=== PATIENT | female | born 1955 | race Caucasian/White ===

== ENCOUNTER 2017-06-15 13:09 | Day surgery (SDC) | payer OTHER ==
[~2017-06-15] VITALS: Ht 172.7 cm; Wt 116.1 kg
[~2017-06-15 13:09] MED LIST: BYSTOLIC5 MG PO; VITAMIN D5000 UNIT PO
--- NOTE | 2017-06-15 16:33 | NUR ---
06/15/17 1633 Tari Jeong 1627 - PT ARRIVED TO PACU. AWAKE AND RESPONDING APPROPRIATLY TO QUESTIONS. PT DENIES PAIN AND NAUSEA.
--- NOTE | 2017-06-27 13:40 | OR ---
[facility] [address] [place], [place] [address] Signed DATE OF PROCEDURE: 06/15/17 PREOPERATIVE DIAGNOSIS: History of hyperplastic polyp, 2011. POSTOPERATIVE DIAGNOSES Polyp at 40 cm (excised). Scattered diverticula. PROCEDURE Total colonoscopy to cecum with cold morcellation polypectomy x1. SURGEON: Ariadna Andrea MD. ANESTHESIA: Intravenous sedation, Fentanyl 200 mcg, Versed 8 mg. INDICATION This 62-year-old white woman is a patient of Dr. Palma and known to me from the past from colonoscopy performed in 2011, at which time, she was noted to have at least 1 hyperplastic polyp. She has no family history of colon cancer and no symptoms related to the colon currently. She is admitted for surveillance colonoscopy. Understand the risks of bleeding, infection, perforation. FINDINGS The prep was excellent. Complete colonoscopy was undertaken to the cecum. There was a polyp that was flat and slightly inflammatory noted at 40 cm. This was excised with cold morcellation technique completely. The remaining colon and rectum were normal. DESCRIPTION OF PROCEDURE The patient was brought to the endoscopy suite and placed in lateral decubitus position. Given intravenous sedation to the point of slurred speech and nystagmus. Digital rectal examination was normal. An Olympus video colonoscope was passed in the rectum and manipulated throughout the colon ultimately intubating the cecum itself. Additional sedation was given as needed for pain control. The cecum was ascertained by visualization of the ileocecal valve and appendiceal orifice. The scope was withdrawn from that point. Examination throughout undertaken showing no sign of abnormality other than a few scattered diverticula and ultimately a sessile type polyp at 40 cm. This was excised with cold morcellation technique completely. Further withdrawal of scope showed no other abnormality. Retroflexed view in the rectum was normal. Scope was removed and the patient was taken to recovery room in good condition. Electronically Signed By: ARIADNA ANDREA MD 06/27/17 6367 PATIENT NAME: COLTEN XAVIER OPERATIVE REPORT DATE OF : 59 PHYSICIAN: ARIADNA ANDREA MD REPORT #: [id number] REPORT IS CONFIDENTIAL AND NOT TO BE RELEASED WITHOUT AUTHORIZATION [facility] [address], [place] [address] Signed CONCLUDING DIAGNOSES Polyp at 40 cm completely excised. Minimal diverticula. PLAN Recommend repeat colonoscopy in 3 years, sooner if clinically indicated. She will return to the ongoing care of Dr. Palma in the meantime. We will review her pathology report as well. MD CARLO Ruelas/Modl /[id number] cc: Aramis Palma MD Electronically Signed By: ARIADNA ANDREA MD 06/27/17 1340 PATIENT NAME: COLTEN XAVIER OPERATIVE REPORT DATE OF : 59 PHYSICIAN: ARIADNA ANDREA MD REPORT #: [id number] REPORT IS CONFIDENTIAL AND NOT TO BE RELEASED WITHOUT AUTHORIZATION
== END 2017-06-15 17:00 | disposition home or self-care (01) ==
LOC: DS 13:09 → OPS 13:09 → DS 15:00 → OPS 15:00
PROVIDERS: Surgery
PROC: 0DBE8ZX Excision of Large Intestine, Via Natural or Artificial Opening Endoscopic, Diagnostic (ICD-10-PCS; principal; 2017-06-15 15:00)
DX: Z12.11 Encounter for screening for malignant neoplasm of colon (principal); D12.6 Benign neoplasm of colon, unspecified; K57.30 Diverticulosis of large intestine without perforation or abscess without bleeding; K59.00 Constipation, unspecified; Z88.0 Allergy status to penicillin; Z79.52 Long term (current) use of systemic steroids; Z79.899 Other long term (current) drug therapy; Z90.89 Acquired absence of other organs; Z98.890 Other specified postprocedural states; Z86.010 Personal history of colon polyps
CPT/HCPCS: 99152; 99153; J2250; J3010; J7120

== ENCOUNTER 2021-04-08 06:25 | Day surgery (SDC) | payer OTHER ==
[~2021-04-08] VITALS: Ht 172.7 cm; Wt 117.0 kg
[~2021-04-08 06:25] MED LIST changes: +NITROFURANTOIN100 M1 PO
--- NOTE | 2021-04-08 08:19 | NUR ---
04/08/21 0819 Story,Maribeth 1501 PT. ARRIVED DROWSY BUT REPSONDS TO QUESTIONS. PASSING GAS, DENIES PAIN.
--- NOTE | 2021-04-08 18:29 | OR ---
[facility] [address] [place], [place] [address] Signed DATE OF OPERATION: 04/08/2021 SURGEON: Ariadna Andrea MD PREOPERATIVE DIAGNOSIS: History of tubular adenoma at 40 cm, 2017. POSTOPERATIVE DIAGNOSES: 1. Rectosigmoid polyp (excised). 2. Mild proctitis. 3. Scattered diverticula. PROCEDURES: 1. Total colonoscopy with visualization of cecum (without complete intubation). 2. Hot snare polypectomy x1. 3. Cold morcellation biopsy of rectum. ANESTHESIA: Intravenous sedation, fentanyl 200 mcg and Versed 8 mg. INDICATION: This 65-year-old white woman is a patient of Dr. Antonio Palma and has undergone colonoscopy at least twice by me in the last in 2016 where she was found to have a tubular adenoma at approximately 40 cm from the anal verge. She is admitted at this time to undergo surveillance colonoscopy and understand the risks of bleeding, infection, and perforation. FINDINGS: Colonoscopy was challenging for reasons that are not entirely clear. She did require abdominal wall stabilization and the cecum was not fully intubated, though was visualized and clearly the ileocecal valve was visualized. There were scattered diverticula of the left colon and sigmoid. She had a somewhat pedunculated polyp at rectosigmoid, which was excised with hot snare polypectomy technique and mild proctitis for which biopsy was undertaken. There were no other findings of concern. PROCEDURE NOTE: The patient was brought to the endoscopy suite and placed in lateral decubitus position, given intravenous sedation to the point of slurred speech and nystagmus. Digital rectal examination was normal. Electronically Signed By: ARIADNA ANDREA MD 04/08/21 1829 PATIENT NAME: SHIRIN XAVIER OPERATIVE REPORT DATE OF : 59 REPORT #: [id number] PHYSICIAN: ARIADNA ANDREA MD PCP: BRY PALMA MD REPORT IS CONFIDENTIAL AND NOT TO BE RELEASED WITHOUT AUTHORIZATION [facility] [address] [place], [place] [address] Signed An Olympus video colonoscope was passed in the rectum and manipulated into the sigmoid. She had a fair amount of discomfort for which additional sedation was required. Passage of the scope was still somewhat challenging through the sigmoid and left colon ultimately passing the sigmoid noting diverticula scattered about. Further with advance of the scope was undertaken, passage beyond the hepatic flexure required abdominal wall stabilization and additional sedation medication. Ultimately, the scope was passed to visualize the ileocecal valve, but actual intubation of the cecum was not possible despite various efforts to do so. Abdominal wall palpation confirmed that the scope was at the right lower quadrant. The biopsy forceps was used to elevate the mucosa behind the ileocecal valve and there was no sign of abnormality there. The scope was then withdrawn and careful examination showed no sign of abnormality other than diverticula of the left colon until the rectosigmoid where a somewhat pedunculated polyp was noted, this was excised with hot snare polypectomy technique without problem and passed for pathology. Further withdrawal showed mild proctitis. Biopsies were obtained. The scope was then removed and the patient was taken to the recovery room in good condition. CONCLUDING DIAGNOSIS: 1. Polyp x1. 2. Mild diverticular changes. 3. Mild proctitis. PLAN: Recommend a repeat colonoscopy in 3 years sooner if clinically indicated. She will return to the ongoing care of Dr. Palma. Ariadna Andrea MD JM/MODL /[id number] cc: Bry Palma MD Copies: BRY PALMA MD Electronically Signed By: ARIADNA ANDREA MD 04/08/21 1829 PATIENT NAME: SHIRIN XAVIER AVANI OPERATIVE REPORT DATE OF : 59 REPORT #: [id number] PHYSICIAN: ARIADNA ANDREA MD PCP: BRY PALMA MD REPORT IS CONFIDENTIAL AND NOT TO BE RELEASED WITHOUT AUTHORIZATION [address] [address] Signed ~ Electronically Signed By: ARIADNA ANDREA MD 04/08/21 1829 PATIENT NAME: SHIRIN XAVIER OPERATIVE REPORT DATE OF : 59 REPORT #: [id number] PHYSICIAN: ARIADNA ANDREA MD PCP: BRY PALMA MD REPORT IS CONFIDENTIAL AND NOT TO BE RELEASED WITHOUT AUTHORIZATION
== END 2021-04-08 09:00 | disposition home or self-care (01) ==
LOC: DS 06:25 → OPS 06:25 → DS 06:45 → OPS 09:00
PROVIDERS: ATTEND Surgery
PROC: 0DBC8ZX Excision of Ileocecal Valve, Via Natural or Artificial Opening Endoscopic, Diagnostic (ICD-10-PCS; 2021-04-08)
PROC: 0DBN8ZX Excision of Sigmoid Colon, Via Natural or Artificial Opening Endoscopic, Diagnostic (ICD-10-PCS; principal; 2021-04-08 06:45)
DX: Z12.11 Encounter for screening for malignant neoplasm of colon (principal); D12.5 Benign neoplasm of sigmoid colon; K62.89 Other specified diseases of anus and rectum; K57.30 Diverticulosis of large intestine without perforation or abscess without bleeding; I10 Essential (primary) hypertension; E66.9 Obesity, unspecified; Z87.19 Personal history of other diseases of the digestive system; Z88.0 Allergy status to penicillin; Z86.010 Personal history of colon polyps; Z68.39 Body mass index [BMI] 39.0-39.9, adult; Z90.49 Acquired absence of other specified parts of digestive tract; Z90.711 Acquired absence of uterus with remaining cervical stump
CPT/HCPCS: 99153; G0500; J2250; J3010; J7121

== ENCOUNTER 2021-05-07 09:54 | Day surgery (SDC) | payer OTHER ==
[~2021-05-07] VITALS: Ht 172.7 cm; Wt 117.3 kg
[2021-05-07] MEDS ORDERED: MULTIVITAMIN1 EACH PO (10:25)
--- NOTE | 2021-05-07 13:00 | NUR ---
05/07/21 1300 Mary Segura 1255 PATIENT ARRIVES TO PACU UNRESPONSIVE TO VERBAL STIMULI. RESP EVEN AND UNLABORED, BUT INCREASED RATE. OXYGEN MASK AT 6L, SATS 100%.
[2021-05-07] MEDS ORDERED: OXYCODON-ACETA1 EAC2 PO (13:06)
[2021-05-07] MEDS ORDERED: IBUPROFEN600 MG PO (13:06)
[2021-05-07] MEDS ORDERED: ACETAMINOPHEN500 MG PO (13:06)
--- NOTE | 2021-05-07 14:47 | NUR ---
1400: PATIENT BACK IN DAY SURGERY ROOM FROM PACU. RATES PAIN 2/10. RIGHT BREAST DRESSING CLEAN, DRY AND INTACT. IV SITE WNL. VS CHECKED. ICE WATER AT BEDSIDE. PATIENT STATES FEELS DIZZY WITH SOME DOUBLE VISION. CALL LIGHT WITHIN REACH. SALTING CRACKERS PLACED AT BEDSIDE.
--- NOTE | 2021-05-07 14:51 | NUR ---
1430: PATIENT ASSISTED OOB AND TO BATHROOM. GAIT SLIGHTLY UNSTEADY. VOID WITHOUT DIFFICULTY. ASSISTED BACK TO ROOM. PATIENT SITTING ON BED SIDE. STATES DOUBLE VISION GONE. CALL LIGHT WITHIN REACH.
--- NOTE | 2021-05-07 15:04 | NUR ---
VS CHECKED. PATIENT LAYING IN BED. NO REQUESTS AT THIS TIME. CALL LIGHT WITHIN REACH.
--- NOTE | 2021-05-07 15:49 | NUR ---
1530: DISCHARGE INSTRUCTIONS GIVEN TO PATIENT. IV DC'D WNL. TIP INTACT. DRESSING APPLIED. PATIENT ASSISTED OOB. GAIT STEADY AROUND ROOM. PATIENT GETTING DRESSED. 1540: PATIENT DISCHARGED TO HOME WITH VIA WHEELCHAIR.
--- NOTE | 2021-05-07 19:55 | EKG ---
[facility] [address] [facility] [place] [address] Signed Normal sinus rhythm Incomplete right bundle branch block Borderline ECG No previous ECGs available Confirmed by JULI TORRES MD ([id number]) on 05/07/2021 7:54:48 PM Electronically Signed By: JULI TORRES MD 05/07/211954 PATIENT NAME: SHIRIN XAVIER Electrocardiogram DATE OF : 59 PHYSICIAN: JULI TORRES MD REPORT #: [id number] REPORT IS CONFIDENTIAL AND NOT TO BE RELEASED WITHOUT AUTHORIZATION
--- NOTE | 2021-05-08 09:46 | OR ---
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 PROCEDURE: Right needle localized breast biopsy (lumpectomy). ANESTHESIA: General LMA, Charo Grimm CRNA and local 10 mL of 0.25% Marcaine with epinephrine. INDICATION: This 65-year-old white woman is a patient of Dr. Palma and well known to me from the past. She is found to have an abnormality in the right medial upper breast for which she underwent image-guided biopsy by Dr. Hall showing a probable benign intraductal papilloma. On the basis of the technique of biopsy and the finding, recommendation has been made for complete excisional biopsy with surrounding soft tissue to assure no malignancy. A marker was left in place by the radiologist. She is now to undergo a needle localized excisional biopsy of the right medial breast. She understands the risk of bleeding, infection, cosmetic deformity, and need for other treatment should malignancy actually be found. She understands and wished to proceed. FINDINGS: The needle emanated from the superior aspect of the medial portion of the right breast. A circumareolar incision was made and wide excision of the tissue associated with the needle was undertaken. Specimen radiograph confirmed the lesion and the tumor marker to be in the excised specimen. As there was thickening deep to the biopsy site, additional tissue was excised mindful that no malignant pathology is as of yet identified. DESCRIPTION OF PROCEDURE: The patient was received from radiology suite and taken to the operating room and given a general LMA type anesthetic. Preoperative antibiotic Ancef was given. Sequential compression device stockings were used. Heparin was subcutaneously administered. The wire emanated from the medial aspect of the right breast. Adherent tape to the wire was dense enough that it Electronically Signed By: ARIADNA ANDREA MD 05/08/21 0946 PATIENT NAME: SHIRIN XAVIER OPERATIVE REPORT DATE OF : 59 REPORT #: [id number] PHYSICIAN: ARIADNA ANDREA MD PCP: BRY PALMA MD REPORT IS CONFIDENTIAL AND NOT TO BE RELEASED WITHOUT AUTHORIZATION [facility] [address] [place], [place] [address] Signed could not be easily removed and it was prepped in continuity with the wire and the remaining breast was prepared using a spray Betadine solution. Sterile draping was undertaken. Given the location of the wire a few cm from the areolar margin, the areolar margin was marked and a circumareolar incision was made. Dissection carried through the dermis and the areolar margin and electrocautery used to elevate a flap superiorly. Using blunt dissection, the wire was delivered into the wound and followed down into the parenchyma of the breast, which was a few cm from the areolar margin itself. An Allis clamp was applied to the parenchyma of the breast in continuity with wire and wide resection was undertaken with electrocautery. The specimen was passed for specimen radiograph. Palpation of the depths of the wound demonstrated very dense tissue at the base of the excised specimen and on that basis, additional tissue was excised using electrocautery. The wound was irrigated with saline solution after hemostasis assured with electrocautery. Parenchymal reapproximation was undertaken with interrupted 2-0 Vicryl. At this point, specimen radiograph information was returned showing that the excised specimen did in fact contain the lesion in question as well as a radiopaque marker. Reapproximated parenchyma with interrupted 2-0 Vicryl showed good cosmetic benefit and the skin was closed with running subcuticular 3-0 Vicryl. Steri-Strips were applied as was additionally a silver sponge dressing (Adaptic dressing). The patient tolerated the procedure well. BLOOD LOSS: Minimal. COMPLICATIONS: None. Ariadna Andrea MD JM/MODL /[id number] cc: MD Patrica Albrecht MD Electronically Signed By: ARIADNA ANDREA MD 05/08/21 0946 PATIENT NAME: SHIRIN XAVIER OPERATIVE REPORT DATE OF : 59 REPORT #: [id number] PHYSICIAN: ARIADNA ANDREA MD PCP: BRY PALMA MD REPORT IS CONFIDENTIAL AND NOT TO BE RELEASED WITHOUT AUTHORIZATION [facility] [address] [facility] [place], [place] [address] Signed Copies: BRY PALMA MD, CYNTHIA SUE MD ~ Electronically Signed By: ARIADNA ANDREA MD 05/08/21 0946 PATIENT NAME: SHIRIN XAVIER OPERATIVE REPORT DATE OF : 59 REPORT #: [id number] PHYSICIAN: ARIADNA ANDREA MD PCP: BRY PALMA MD REPORT IS CONFIDENTIAL AND NOT TO BE RELEASED WITHOUT AUTHORIZATION
--- NOTE | 2021-05-10 19:30 | PATH ---
[facility] [address] [facility] [place], [place] [address] Signed SPECIMEN(S): A RIGHT BREAST MASS SPECIMEN(S): B ADDITIONAL DEEP MARGIN SPECIMEN SOURCE: A. RIGHT BREAST MASS B. ADDITIONAL DEEP MARGIN CLINICAL HISTORY: Intraductal papilloma of right breast Specimen Time to Fixation- 05/07/2021 12:40:00 PM FINAL PATHOLOGIC DIAGNOSIS: A. Breast, right, lumpectomy: - Cauterized intraductal papilloma present at one unoriented specimen margin. - Fibrocystic changes. - Microcalcifications associated with benign breast tissue. - Biopsy site changes. - No evidence of malignancy. B. Breast, right, additional deep margin, excision: - Focal atypical ductal hyperplasia (less than 1 mm). - Fibrocystic changes. - Columnar cell change. - No evidence of malignancy. COMMENT: Regarding specimen A: The significant majority of the intraductal papilloma is cauterized, limiting histologic interpretation. The remaining papilloma spans approximately 3 mm. Regarding specimen B: A minute focus (less than 1 mm) of a duct expanded by monotonous epithelial cells is seen. Immunohistochemical stains (with appropriately staining controls) demonstrate epithelial ER overexpression and loss of CK5/6 staining, supporting the interpretation of atypical ductal hyperplasia. The focus is widely free of the margins. NAL:cml:C2NR MICROSCOPIC EXAMINATION: Histologic sections of all submitted blocks are examined by light microscopy. These findings, together with the gross examination, support the pathologic diagnosis. PATIENT NAME: SHIRIN XAVIER AVANI PATHOLOGY DATE OF : 59 REPORT #: [id number] PHYSICIAN: WANDA BECKFORD PCP: BRY NIEVES MD REPORT IS CONFIDENTIAL AND NOT TO BE RELEASED WITHOUT AUTHORIZATION [facility] [address] [place], [place] [address] Signed GROSS DESCRIPTION: Two specimens are received in two containers, labeled "CR." A. The specimen, labeled "CR, A," and designated on the requisition "right breast, intraductal papilloma," is received in formalin and consists of an unoriented, discoid, 5.2 x 4.3 x 1.7 cm, 16 g lumpectomy specimen with the localization wire protruding from one surface. The surface with the localization wire is inked orange and the surface opposite to the localization wire is inked red. The remaining specimen is inked blue. The specimen is cross-sectioned into eight slices to reveal yellow fibrofatty and almeida-white fibroglandular tissue without a discrete mass/lesion. Fibroglandular tissue comprises approximately less than 5% of the parenchyma. A silver metallic, jorge shaped biopsy marker is found within slice 3. The biopsy marker is 0.2 cm from the blue inked margin, 0.4 cm from the orange inked margin, and 2.5 cm from the red inked margin. An additional biopsy marker is not grossly identified. Civil Clerk sections are submitted as follows: A1-A3 bisected slice 3 (A1-A2 is a bivalved section) A4 perpendicular sections of one end (slice 1) A5 perpendicular sections of one end (slice 8) A6 remaining parenchyma (slice 6) Cold ischemic time: 2 minutes per requisition form Formalin fixation time: Approximately 22 hours B. The specimen, labeled "CR, B," and designated on the requisition "additional deep margin," is received in formalin and consists of an unoriented, 10 grams, irregularly-shaped, 4.8 x 3.2 x 2.2 cm lumpectomy specimen. The external surface of the specimen is inked blue and the specimen is cross-sectioned to reveal yellow, fibrofatty and almeida-white fibroglandular tissue without a discrete mass/lesion. Fibroglandular tissue comprises approximately less than 5% of the parenchyma. The specimen is submitted entirely as follows: B1 one end, perpendicularly sectioned B2-B8 midportion of specimen submitted sequentially B9 one end, perpendicularly sectioned Cold ischemic time: 2 minutes per requisition form Formalin fixation time: Approximately 22 hours AI (under the direct supervision of a pathologist) Per request by Dr. Ramirez specimen A is revisited and additional sections are submitted as follows: PATIENT NAME: SHIRIN XAVIER PATHOLOGY DATE OF : 59 REPORT #: [id number] PHYSICIAN: WANDA BECKFORD PCP: BRY NIEVES MD REPORT IS CONFIDENTIAL AND NOT TO BE RELEASED WITHOUT AUTHORIZATION [address] [address] Signed A7-A10 slice 2 bisected (A7-A8 and A9-A10 are bivalved sections) A11-A14 slice 4 bisected (A11-A12 and A13-A14 are bivalved sections) 05/09/21 2:55pm The Gross Description was prepared using a voice recognition system. The report was reviewed for accuracy; however, sound-alike word errors, addition and/or deletions may occur. If there is any question about this report, please contact Client Services. PERFORMING LABORATORY: The technical component was performed by [facility], [address] [place] [id number] (Medieval English Literature Professor: Sherice Dejesus MD; CLIA# [id number]). [facility], [address] [place] [address] (CLIA# [id number]). Diagnostician: Luana Ramirez MD Pathologist Electronically Signed 05/10/2021 Copies: ~ PATIENT NAME: SHIRIN XAVIER PATHOLOGY DATE OF : 59 REPORT #: [id number] PHYSICIAN: WANDA BECKFORD PCP: BRY NIEVES MD REPORT IS CONFIDENTIAL AND NOT TO BE RELEASED WITHOUT AUTHORIZATION
== END 2021-05-07 15:40 | disposition home or self-care (01) ==
LOC: DS 09:54 → OPS 09:54 → MAM 11:00 → OPS 11:00 → EDSTATUS 11:00 → OPS 15:40
PROVIDERS: ATTEND Surgery
PROC: 0HBT0ZZ Excision of Right Breast, Open Approach (ICD-10-PCS; principal; 2021-05-07 12:00)
DX: D24.1 Benign neoplasm of right breast (principal); N60.91 Unspecified benign mammary dysplasia of right breast; I10 Essential (primary) hypertension; Z86.010 Personal history of colon polyps; Z88.0 Allergy status to penicillin; Z80.3 Family history of malignant neoplasm of breast
CPT/HCPCS: 00404; 19281; 76098; 93005; 93010; J0131; J0690; J1100; J1644; J1885; J2001; J2250; J2405; J2704

== ENCOUNTER 2024-10-28 07:25 | Day surgery (SDC) | payer MEDICARE, OTHER ==
[~2024-10-28] VITALS: Ht 172.7 cm; Wt 115.9 kg
[~2024-10-28 07:25] MED LIST changes: +ACETAMINOPHEN500 MG PO; +IBLOOD GLUCOSE TEST STRIP 1 EA TEST VI PRN; +IBUPROFEN600 MG PO; +LACTATED RINGER'S 1,000 ML IV SCH; +LIDOCAINE HCL 1% 5 ML SDV INJ ONE; +MIDAZOLAM HCL 5 MG/5 ML VIAL IV PRN; +MULTIVITAMIN1 EACH PO; +OXYCODON-ACETA1 EAC2 PO; +ROSUVASTATIN CAL5 MG PO; +fentaNYL citrate 100 MCG/2 ML VIAL IV PRN
[2024-10-28 07:41] VITALS: BP 140/82
[2024-10-28] MEDS ORDERED: ASPIRIN81 MG PO (07:44)
[2024-10-28] MEDS ORDERED: VITAMIN D3250 MC1 PO (07:44)
[2024-10-28] MEDS ORDERED: MULTIVITAMIN1 EACH PO (07:45)
[2024-10-28] MEDS ORDERED: MIDAZOLAM HCL 5 MG/5 ML VIAL ONE (08:15)
[2024-10-28] MEDS ORDERED: fentaNYL citrate 100 MCG/2 ML VIAL ONE (08:15)
--- NOTE | 2024-10-28 09:19 | NUR ---
10/28/24 0919 Valerie Argueta 0911-PT ARRIVES TO PACU VIA STRETCHER, RESTIG ON LT SIDE. PT RESPONSIVE TO STIMULI, BUT RESTING W/ EYES CLOSED. VSS ON 2L VIA NC, RR EVEN AND UNLABORED. PT PASSING GAS. 0918-PT AWAKENS ON OWN, DENIES PAIN OR NAUSEA, PT ENCOURAGED TO KEEP PASSING GAS.
[2024-10-28 09:33] VITALS: BP 119/63
--- NOTE | 2024-10-28 11:30 | OR ---
[facility] [address] [place], [place] [address] Signed DATE OF OPERATION: 10/28/2024 SURGEON: Ariadna Andrea MD PREOPERATIVE DIAGNOSIS: History of polyp and diverticulosis in 2020. POSTOPERATIVE DIAGNOSES: 1. Sigmoid and left-sided diverticula. 2. Mildly nodular rectal mucosa. PROCEDURE: Total colonoscopy to cecum with biopsy of rectum. ANESTHESIA: Intravenous sedation, fentanyl 150 mcg and Versed 7 mg. INDICATIONS FOR THE PROCEDURE: This 69-year-old white woman is a patient of Dr. Feliciano. She underwent colonoscopy by me on April 08, 2021, where she was found to have a polyp and diverticular changes and mild proctitis. Pathology confirmed tubular adenoma of the sigmoid. She currently has no symptoms of bleeding, diarrhea, or constipation and no family history of colon cancer. She is admitted at this time to undergo colonoscopy for surveillance. She understands the risk of bleeding, infection, and perforation. FINDINGS: The prep was good. Complete colonoscopy was undertaken to the cecum with visualization, but without full intubation of the cecum. There were diverticula of the sigmoid and left colon. There was mild nodular changes of the rectum, but no sign of actual severe colitis in any way. There were no other findings of note. There were no polyps. DESCRIPTION OF PROCEDURE: The patient was brought to the endoscopy suite and placed in lateral decubitus position given intravenous sedation to the point of slurred speech and nystagmus. Digital rectal examination was normal. An Olympus video colonoscope was passed in the rectum and manipulated throughout the colon, ultimately intubating the right colon. With various maneuvers, the scope was advanced to visualize the cecum, though it could not be intubated easily without too much patient discomfort. After good visualization of the cecum, the scope was withdrawn. Examination undertaken confirmed only diverticula of the left colon and sigmoid. The rectum showed mild nodular mucosal changes. Biopsies Electronically Signed By: ARIADNA ANDREA MD 10/28/24 1130 PATIENT NAME: SHIRIN XAVIER OPERATIVE REPORT DATE OF : 59 REPORT #: [id number] PHYSICIAN: ARIADNA ANDREA MD PCP: GELY FELICIANO MD REPORT IS CONFIDENTIAL AND NOT TO BE RELEASED WITHOUT AUTHORIZATION [facility] [address] [facility] [place] [address] Signed were taken of the rectum. Scope was removed. The patient taken to the recovery room in good condition. CONCLUDING DIAGNOSES: 1. Diverticulosis, no evidence of polyps. 2. Mild nodularity of rectum probably of little clinical significance. RECOMMENDATIONS: Repeat colonoscopy in 10 years or sooner if symptoms should occur. She will return to the ongoing care of Dr. Gely Feliciano. MD CARLO Ruelas/MODL /[id number] Copies: ~ Electronically Signed By: ARIADNA ANDREA MD 10/28/24 1130 PATIENT NAME: SHIRIN XAVIER OPERATIVE REPORT DATE OF : 59 REPORT #: [id number] PHYSICIAN: ARIADNA ANDREA MD PCP: GELY FELICIANO MD REPORT IS CONFIDENTIAL AND NOT TO BE RELEASED WITHOUT AUTHORIZATION
--- NOTE | 2024-11-01 08:57 | PATH ---
[facility] [address] [place], [place] [address] Signed SPECIMEN(S): A RECTUM SPECIMEN SOURCE: A. RECTUM CLINICAL HISTORY: History of adenoma, polyps. Post: Diverticulosis, mild proctitis FINAL PATHOLOGIC DIAGNOSIS: Rectum, biopsy: - Colonic mucosa with a prominent lymphoid aggregate BRP MICROSCOPIC EXAMINATION: Histologic sections of all submitted blocks are examined by light microscopy. These findings, together with the gross examination, support the pathologic diagnosis. GROSS DESCRIPTION: The specimen, labeled and designated "Carmen, C, rectum," is received in formalin and consists of three almeida soft tissue fragments, ranging from 0.2-0.3 cm. Entirely submitted in (A1). AB (under the direct supervision of a pathologist) The Gross Description was prepared using a voice recognition system. The report was reviewed for accuracy; however, sound-alike word errors, addition and/or deletions may occur. If there is any question about this report, please contact Client Services. ADDITIONAL NOTES: Immunohistochemical and/or in situ hybridization studies if performed in this case included appropriate positive controls that reacted as expected. This test was developed and its performance characteristics determined by [facility]. It has not been cleared or approved by the U.S. Food and Drug Administration. The FDA has determined that such clearance or approval is not necessary. This test is used for clinical purposes. It should not be regarded as investigational or for research. [facility] is certified under the Clinical Laboratory Improvement Amendments of 1988 (CLIA) as qualified to perform high complexity clinical laboratory testing. PATIENT NAME: SHIRIN XAVIER PATHOLOGY DATE OF : 59 REPORT #: [id number] PHYSICIAN: WANDA BECKFORD PCP: ARYAN FELICIANO MD REPORT IS CONFIDENTIAL AND NOT TO BE RELEASED WITHOUT AUTHORIZATION [address] [place] [address] Signed PERFORMING LABORATORY: Technical component [place] [address] (CLIA# [id number]). Professional interpretation was performed by [facility] [place] [address] (CLIA#: [id number]). Diagnostician: Remberto Espinal MD Pathologist Electronically Signed 11/01/2024 Copies: ~ PATIENT NAME: SHIRIN XAVIER PATHOLOGY DATE OF : 59 REPORT #: [id number] PHYSICIAN: WANDA BECKFORD PCP: ARYAN FELICIANO MD REPORT IS CONFIDENTIAL AND NOT TO BE RELEASED WITHOUT AUTHORIZATION
== END 2024-10-28 09:48 | disposition home or self-care (01) ==
LOC: OPS 07:25 → DS 07:26 → OPS 08:15
PROVIDERS: ATTEND Surgery
PROC: 0DDP8ZX Extraction of Rectum, Via Natural or Artificial Opening Endoscopic, Diagnostic (ICD-10-PCS; principal; 2024-10-28 08:15)
DX: Z12.11 Encounter for screening for malignant neoplasm of colon (principal); K57.30 Diverticulosis of large intestine without perforation or abscess without bleeding; K62.89 Other specified diseases of anus and rectum; E78.5 Hyperlipidemia, unspecified; I10 Essential (primary) hypertension; Z86.0101 Personal history of adenomatous and serrated colon polyps; Z79.899 Other long term (current) drug therapy; Z88.0 Allergy status to penicillin; Z90.710 Acquired absence of both cervix and uterus; Z90.49 Acquired absence of other specified parts of digestive tract
CPT/HCPCS: 99153; G0500; J2250; J3010; J7121